=== PATIENT | male | born 1995 | race American Indian/Alaskan Native ===

== ENCOUNTER 2019-06-16 20:48 | Emergency (ER) | payer BC ==
[2019-06-16 21:14] VITALS: BP 106/61
--- NOTE | 2019-06-16 21:49 | XRay Report ---
CHEST PA AND LATERAL VIEWS INDICATION: chest pain. COMPARISON: None FINDINGS: Support devices: None Heart: Normal Lungs/Pleura: No acute pulmonary or pleural findings. IMPRESSION: 1. No significant abnormality. Signer Name: Pollo Posey MD Signed: 06/16/2019 9:44 PM Workstation Name: [id number]
[2019-06-16 22:06] LABS: Hematocrit 39.7 % (35.5-45.6); Hemoglobin 13.1 gm/dl (11.8-15.2); Mean Corpuscular HGB Conc 33 % (32-34); Mean Corpuscular Volume 82 fl (84-94); Platelet Count 174 K/mm3 (140-440); Red Blood Count 4.82 M/mm3 (3.65-5.03); Red Cell Distribution Width 14.2 % (13.2-15.2)
[2019-06-16 22:38] LABS: Alanine Aminotransferase 8 units/L (7-56); BUN/Creatinine Ratio 10; Blood Urea Nitrogen 13 mg/dL (9-20); Calcium 8.7 mg/dL (8.4-10.2); Hemolysis Index 9
[2019-06-16 22:42] LABS: Total Cells Counted 100
[2019-06-16 22:43] LABS: Basophils % (Manual) 0 % (0.0-1.8)
[2019-06-16 22:44] LABS: Anisocytosis 1+; Platelet Estimate Consistent w Auto; Poikilocytosis 1+
[2019-06-16 22:45] LABS: Ovalocytes 1+
== END 2019-06-17 02:55 | disposition left against medical advice (07) ==
LOC: ED 20:48
DX: R07.89 Other chest pain (principal); Z53.21 Procedure and treatment not carried out due to patient leaving prior to being seen by health care provider
CPT/HCPCS: 36415; 71046; 80053; 84484; 85007; 85025; 93005; 93010